=== PATIENT | female | born 1970 | race Caucasian/White ===

== ENCOUNTER 2018-01-31 14:16 | Emergency (ER) | payer OTHER ==
[~2018-01-31] VITALS: Ht 170.2 cm; Wt 104.3 kg
--- NOTE | ~2018-01-31 | EKG ---
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
[2018-01-31] MEDS ORDERED: ALBUTEROL2.5 MG/0.1 INH (14:22)
[2018-01-31 15:38] LABS: ABSOLUTE NEUTROPHILS 4.7 thou/uL (1.4-8.2); BASOPHILS 0.7 % (0.0-2.0); EOSINOPHILS 0.6 % (0.0-3.0); HEMATOCRIT 36.3 % (37.0-47.0); HEMOGLOBIN 12.8 gm/dL (12.0-15.0); LYMPHOCYTES 20.1 % (24.0-44.0); MCH 30.2 pg (26.0-34.0); MCHC 35.3 g/dL (28.0-37.0); MCV 85.7 fL (80.0-100.0); POLYS 73.6 % (36.0-66.0); RBC 4.24 mil/uL (4.20-5.00); RDW 14.3 % (10.5-14.5); WBC 6.4 thou/uL (4.0-11.0)
[2018-01-31 16:04] LABS: ANION GAP 8 mmol/L (7-16); BUN 9 mg/dL (7-18); CALCIUM 8.9 mg/dL (8.5-10.1); CHLORIDE 106 mmol/L (98-107); CO2 22 mmol/L (21-32); CREATININE 0.7 mg/dL (0.6-1.0); GLUCOSE 104 mg/dL (74-106); POTASSIUM 3.5 mmol/L (3.5-5.1); SODIUM 136 mmol/L (136-145); TROPONIN-I <0.06 ng/mL (<0.06)
[2018-01-31 16:10] LABS: PLATELET COUNT 274 thou/uL (150-400)
[2018-01-31] MEDS ORDERED: DOXYCYCLINE 10100 MG PO (16:59)
[2018-01-31] MEDS ORDERED: ALBUTEROL2.5 MG/31 INH (16:59)
[2018-01-31] MEDS ORDERED: PREDNISONE 20 M20 MG PO (16:59)
[2018-01-31 19:00] VITALS: BP 129/84
== END 2018-01-31 19:01 | disposition home or self-care (01) ==
LOC: ER 14:16
PROVIDERS: Nurse Practitioner Family
DX: J18.9 Pneumonia, unspecified organism (principal); J45.909 Unspecified asthma, uncomplicated; Z88.1 Allergy status to other antibiotic agents; Z88.8 Allergy status to other drugs, medicaments and biological substances; Z88.3 Allergy status to other anti-infective agents